=== PATIENT | male | born 1990 | race Caucasian/White ===

== ENCOUNTER 2017-09-10 08:32 | Emergency (ER) | payer OTHER ==
[~2017-09-10] VITALS: Ht 188 cm; Wt 142.9 kg
[~2017-09-10 08:32] MED LIST: ALPRAZOLAM2 MG PO; BENADRYL25 MG PO; CLONIDINE HCL0.1 MG PO; CLONIDINE HCL0.2 MG PO; GABAPENTIN600 MG PO; GEODON20 MG PO; HYDROXYZINE PAM50 MG PO; IBUPROFEN800 MG PO; PROTECT IRON T1 EACH PO; TRAZODONE HCL100 MG PO; TYLENOL EXTRA500 MG PO; VISTARIL50 MG PO; WELLBUTRIN SR150 MG PO; ZYPREXA ZYDIS15 MG PO; ZYPREXA15 MG PO
[2017-09-10] MEDS ORDERED: OLANZAPINE7.5 MG PO (08:41)
[2017-09-10] MEDS ORDERED: CLONAZEPAM0.5 MG PO (08:41)
[2017-09-10] MEDS ORDERED: METHYLPHENIDATE27 MG PO (08:42)
[2017-09-10] MEDS ORDERED: KETOROLAC TROME10 MG PO (09:00)
[2017-09-10] MEDS ORDERED: METHYLPREDNISOLO4 M1 PO (09:00)
[2017-09-10] MEDS ORDERED: BACLOFEN10 MG PO (09:00)
[2017-12-05] MEDS ORDERED: CONCERTA18 MG PO (13:05)
== END 2017-09-10 09:11 | disposition home or self-care (01) ==
LOC: ED 08:32
DX: M99.02 Segmental and somatic dysfunction of thoracic region (principal); M25.551 Pain in right hip; I10 Essential (primary) hypertension; F41.9 Anxiety disorder, unspecified; F32.9 Major depressive disorder, single episode, unspecified; G43.909 Migraine, unspecified, not intractable, without status migrainosus; Z87.891 Personal history of nicotine dependence; Z98.61 Coronary angioplasty status; Z88.8 Allergy status to other drugs, medicaments and biological substances; Z79.899 Other long term (current) drug therapy
CPT/HCPCS: 99283

== ENCOUNTER 2017-11-10 12:27 | Emergency (ER) | payer OTHER ==
[~2017-11-10] VITALS: Ht 188 cm; Wt 149.7 kg
[~2017-11-10 12:27] MED LIST changes: +BACLOFEN10 MG PO; +CLONAZEPAM0.5 MG PO; +KETOROLAC TROME10 MG PO; +METHYLPHENIDATE27 MG PO; +METHYLPREDNISOLO4 M1 PO; +OLANZAPINE7.5 MG PO
[2017-11-10] MEDS ORDERED: ALPRAZOLAM0.5 MG PO (12:47)
[2017-11-10] MEDS ORDERED: ANUSOL-HC25 MG PR (14:06)
[2017-12-05] MEDS ORDERED: CONCERTA18 MG PO (13:05)
== END 2017-11-10 14:28 | disposition home or self-care (01) ==
LOC: ED 12:27
DX: K64.8 Other hemorrhoids (principal); I10 Essential (primary) hypertension; F20.0 Paranoid schizophrenia; F41.9 Anxiety disorder, unspecified; F32.9 Major depressive disorder, single episode, unspecified; Z88.8 Allergy status to other drugs, medicaments and biological substances; Z79.899 Other long term (current) drug therapy
CPT/HCPCS: 80053; 85025; 99283

== ENCOUNTER 2017-11-25 12:47 | Emergency (ER) | payer OTHER ==
[~2017-11-25] VITALS: Ht 188 cm; Wt 149.7 kg
[~2017-11-25 12:47] MED LIST changes: +ALPRAZOLAM0.5 MG PO; +ANUSOL-HC25 MG PR
[2017-11-25] MEDS ORDERED: NAPROSYN500 MG PO (17:45)
[2017-11-25] MEDS ORDERED: AUGMENTIN 875-1 EACH PO (17:45)
--- NOTE | 2017-11-26 23:48 | EKG ---
[facility] [address] [place], [place] [address] Signed Normal sinus rhythm Normal ECG When compared with ECG of 25-NOV-2017 13:00, (Unconfirmed) No significant change was found Confirmed by JUNIOR MURPHY MD ([id number]) on 11/26/2017 11:48:08 PM Electronically Signed By: JUNIOR MURPHY MD 11/26/17 2348 PATIENT NAME: VITA GONZÁLES Electrocardiogram DATE OF : [birth year] PHYSICIAN: JUNIOR MURPHY MD REPORT #: [id number] REPORT IS CONFIDENTIAL AND NOT TO BE RELEASED WITHOUT AUTHORIZATION
--- NOTE | 2017-11-26 23:48 | EKG ---
[facility] [address] [facility] [place] [address] Signed Sinus tachycardia Nonspecific ST and T wave abnormality Abnormal ECG No previous ECGs available Confirmed by JUNIOR MURPHY MD ([id number]) on 11/26/2017 11:48:03 PM Electronically Signed By: JUNIOR MURPHY MD 11/26/17 2348 PATIENT NAME: VITA GONZÁLES Electrocardiogram DATE OF : [birth year] PHYSICIAN: JUNIOR MURPHY MD REPORT #: [id number] REPORT IS CONFIDENTIAL AND NOT TO BE RELEASED WITHOUT AUTHORIZATION
[2017-12-05] MEDS ORDERED: CONCERTA18 MG PO (13:05)
== END 2017-11-25 18:46 | disposition home or self-care (01) ==
LOC: ED 12:47
DX: J18.9 Pneumonia, unspecified organism (principal); J90 Pleural effusion, not elsewhere classified; J98.11 Atelectasis; R00.0 Tachycardia, unspecified; R94.31 Abnormal electrocardiogram [ECG] [EKG]; R79.89 Other specified abnormal findings of blood chemistry; F20.0 Paranoid schizophrenia; F32.9 Major depressive disorder, single episode, unspecified; Z79.899 Other long term (current) drug therapy; Z88.8 Allergy status to other drugs, medicaments and biological substances
CPT/HCPCS: 71046; 71260; 80053; 81001; 84443; 84484; 85025; 85379; 93005; 93010; 96361; 96374; 99284; J1885; J7120; Q9967

== ENCOUNTER 2017-12-11 08:40 | Day surgery (SDC) | payer OTHER ==
[~2017-12-11] VITALS: Ht 188 cm; Wt 149.7 kg
[~2017-12-11 08:40] MED LIST changes: +AUGMENTIN 875-1 EACH PO; +CONCERTA18 MG PO; +NAPROSYN500 MG PO
--- NOTE | 2017-12-11 11:34 | NUR ---
12/11/17 1134 Diana Ray 1126 PT ARRIVED IN PACU SLEEPY. ANESTHESIA AT BEDSIDE.
[2017-12-11] MEDS ORDERED: OXYCODON-ACETA1 EAC2 PO (11:39)
[2017-12-11] MEDS ORDERED: IBUPROFEN600 MG PO (11:39)
--- NOTE | 2017-12-11 12:34 | NUR ---
LE 1205: PT RETURNED FROM PACU VIA STRETCHER WITH RN. PT AWAKE AND TALKING. DENIES NAUSEA. RATES PAIN 5/10, IV AND PO MEDICATIONS GIVEN. PUDDING AND WATER GIVEN. LUNCH ORDERED PER PT REQUEST. GF IN ROOM. NO FURTHER NEEDS AT THIS TIME. CALL LIGHT IN REACH.
--- NOTE | 2017-12-11 14:35 | NUR ---
LE 1400: IN TO CHECK ON PT, PT AWAKE WATCHING TV. PT DOING WELL. RATE PAIN 4/10, IBU 600 MG GIVEN. PT STATES HE IS READY TO DISCHARGED. SL REMOVED. PT UP OUT OF BED, WALKING AT BEDSIDE. PT ABLE TO VOID IN URINAL. DRESSED WITH HELP WITH OF . PT TOLERATED WELL. D/C VIA WC.
--- NOTE | 2017-12-13 13:48 | OR ---
[facility] [address] [place], [place] [address] Signed DATE OF OPERATION: 12/11/2017 SURGEON: Marcus Vaughan MD PREOPERATIVE DIAGNOSES: 1. Obesity. 2. Right inguinal hernia (symptomatic). POSTOPERATIVE DIAGNOSIS: Right indirect and indirect inguinal hernia. PROCEDURE: Repair of right inguinal hernia with implantation of Prolene mesh (underlay technique). ANESTHESIA: General endotracheal, Cornelius Abarca CRNA and local 20 mL of 0.25% Marcaine without epinephrine. INDICATION: This 27-year-old white man is referred by Torres Davila with a worker's comp related right inguinal hernia. He has pain in the area and ultrasound has confirmed hernia. He is admitted to undergo repair. He understands the risks of bleeding, infection, recurrence, and so on. FINDINGS: There appeared to be a fat-containing indirect hernia adjacent to the cord. Initially, it was suggestive of a lipoma of the cord, but with full evaluation more likely an indirect-type hernia. The floor of the canal was intact distally, but laterally and more proximal to the cord was attenuated. Implantation of Prolene mesh in an underlay technique was used to secure reconstruction of the floor. An ilioinguinal and iliohypogastric nerve were identified and preserved during the course of dissection. Cord structures were normal otherwise. DESCRIPTION OF PROCEDURE: The patient was brought to the operating room and given a general endotracheal anesthetic. Preoperative antibiotic Ancef 3 g was given. Sequential compression device stockings used and heparin subcutaneously administered. The abdomen was clipped and prepared with a chlorhexidine solution and draped sterilely. The patient is very large. A transverse incision was made cephalad to the pubic tubercle on the right side. Dissection was carried through the subcutaneous tissue, ultimately identifying the Electronically Signed By: MARCUS VAUGHAN MD 12/13/17 1348 PATIENT NAME: VITA GONZÁLES OPERATIVE REPORT DATE OF : [birth year] PHYSICIAN: MARCUS VAUGHAN MD REPORT #: [id number] REPORT IS CONFIDENTIAL AND NOT TO BE RELEASED WITHOUT AUTHORIZATION [facility] [address] [place], [place] [address] Signed external oblique fascia. He had a very thick abdominal wall pannus. The external oblique was incised along its fibers revealing the underlying cord structures. An ilioinguinal and iliohypogastric nerve branch were dissected free from the cremasteric muscle fibers of the cord and reflected around the external oblique medially. The cord was mobilized from the floor and encircled with a [place] drain. Further dissection was undertaken showing the distal portion of the floor to be intact, but with attenuation of the internal ring as well as was what appeared to be a fatty indirect hernia. Cord structures were freed from the surrounding structures more fully. The fat-containing protrusion near the medial aspect of the cord and was found more likely to be a herniated properitoneal fat. There was certainly no hollow viscus within the area. This was invaginated into the properitoneal space and secured with a moist laparotomy pack. The attenuated fibers of the fascia transversalis in the region of the spermatic cord were incised revealing the inferior epigastric vessels, which were left in situ. Further division of the fascia transversalis was undertaken towards the pubic tubercle. The properitoneal fat was bluntly . There was no sign of femoral hernia or defect. A segment of Prolene mesh was cut to the appropriate configuration and secured in an underlay technique with interrupted 2-0 Prolene suture. A defect was cut in the graft to accommodate the cord and the tails of the graft were secured laterally with 2-0 Prolene as well. Special care was taken to avoid encumbering the ilioinguinal and iliohypogastric nerve branches. The cord was replaced into the canal as were the inguinal nerves and 20 mL of 0.25% Marcaine without epinephrine was injected locally. The external oblique was reapproximated with running 2-0 Vicryl sutures. Dayna's layer was reapproximated with interrupted 2-0 Vicryl and skin closed with running subcuticular 3-0 Vicryl. Steri-Strips were applied as was a Mepilex silver sponge dressing and an OpSite. The patient tolerated the procedure well. BLOOD LOSS: Minimal. COMPLICATIONS: None. Marcus Vaughan MD Electronically Signed By: MARCUS VAUGHAN MD 12/13/17 1348 PATIENT NAME: VITA GONZÁLES OPERATIVE REPORT DATE OF : [birth year] PHYSICIAN: MARCUS VAUGHAN MD REPORT #: [id number] REPORT IS CONFIDENTIAL AND NOT TO BE RELEASED WITHOUT AUTHORIZATION [address] [place], [place] [address] Signed VASYL/LUCINDA /[id number] cc: YASMANY Peoples Electronically Signed By: MARCUS VAUGHAN MD 12/13/17 1348 PATIENT NAME: ELIECERVITA GARCIA OPERATIVE REPORT DATE OF : [birth year] PHYSICIAN: AMRCUS VAUGHAN MD REPORT #: [id number] REPORT IS CONFIDENTIAL AND NOT TO BE RELEASED WITHOUT AUTHORIZATION
== END 2017-12-11 14:28 | disposition home or self-care (01) ==
LOC: DS 08:40
PROVIDERS: Surgery
PROC: 0YU50JZ Supplement Right Inguinal Region with Synthetic Substitute, Open Approach (ICD-10-PCS; principal; 2017-12-11 10:00)
DX: K40.90 Unilateral inguinal hernia, without obstruction or gangrene, not specified as recurrent (principal); E66.9 Obesity, unspecified; Z88.8 Allergy status to other drugs, medicaments and biological substances; Z98.890 Other specified postprocedural states; Z68.41 Body mass index [BMI] 40.0-44.9, adult
CPT/HCPCS: 00830; C1781; J0690; J1170; J1644; J1885; J2405; J2704; J2710; J3010; J7120

== ENCOUNTER 2021-05-14 11:16 | Emergency (ER) | payer OTHER ==
[~2021-05-14] VITALS: Ht 188 cm; Wt 154.2 kg
[~2021-05-14 11:16] MED LIST changes: +IBUPROFEN600 MG PO; +OXYCODON-ACETA1 EAC2 PO; +VITAMIN B-121000 MC3 PO
--- OUTSIDE RECORDS SUMMARY | 2021-05-14 11:22 | XMS ---
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 ( 01/03/2021 ) Care History Medical/Surgical 10/08/2018 [facility] - Patient is currently established with [facility]. If patient is seen in the ED during business hours. Please contact CHWs at [facility]. Care Recommendation: This patient has had 5 or more Emergency Department visits in the last 12 months.\T\nbsp; Patient requires education on the scope and purpose of the ED as an acute care provider not a Primary Care Provider and should not be utilized for chronic conditions.\T\nbsp; These are guidelines and the provider should exercise clinical judgment when providing care. E.D. VISIT COUNT (12 MO.) 1 [facility] TOTAL 1 NOTE: Visits indicate total known visits. ED/UCC VISIT TRACKING (12 MO.) 05/14/2021 11:17 [facility] [place] TYPE: Emergency COMPLAINT: - LEFT KNEE PAIN INPATIENT VISIT TRACKING (12 MO.) No inpatient visits to display in this time frame [email or web address]
[2021-05-14] MEDS ORDERED: DEXTROAMP-AMPHE30 MG PO (11:35)
== END 2021-05-14 12:40 | disposition home or self-care (01) ==
LOC: ED 11:16
DX: S83.92XA Sprain of unspecified site of left knee, initial encounter (principal); W22.8XXA Striking against or struck by other objects, initial encounter; I10 Essential (primary) hypertension; Z87.891 Personal history of nicotine dependence; Z88.8 Allergy status to other drugs, medicaments and biological substances; Z79.899 Other long term (current) drug therapy
CPT/HCPCS: 73560; 99283-25

== ENCOUNTER 2021-06-05 12:33 | Emergency (ER) | payer OTHER ==
[~2021-06-05] VITALS: Ht 188 cm; Wt 154.2 kg
[~2021-06-05 12:33] MED LIST changes: +DEXTROAMP-AMPHE30 MG PO
--- OUTSIDE RECORDS SUMMARY | 2021-06-05 12:36 | XMS ---
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 If patient is seen in the ED during business hours. Please contact CHWs at [facility]. Care Recommendation: This patient has had 5 [...] providing care. E.D. VISIT COUNT (12 MO.) 2 [facility] TOTAL 2 NOTE: Visits indicate total known visits. 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
[2021-06-05] MEDS ORDERED: AMPHETAMINE SAL20 MG PO (12:55)
== END 2021-06-05 17:31 | disposition home or self-care (01) ==
LOC: ED 12:33
DX: U07.1 COVID-19 (principal); I10 Essential (primary) hypertension; G43.909 Migraine, unspecified, not intractable, without status migrainosus; Z87.891 Personal history of nicotine dependence; Z88.8 Allergy status to other drugs, medicaments and biological substances; Z79.899 Other long term (current) drug therapy
CPT/HCPCS: 71045; 96374; 99283-25; C9803; J1885; M0245; U0003

== ENCOUNTER 2021-12-12 20:40 | Emergency (ER) | payer OTHER ==
[~2021-12-12] VITALS: Ht 188 cm; Wt 146.0 kg
[~2021-12-12 20:40] MED LIST changes: +AMPHETAMINE SAL20 MG PO
--- OUTSIDE RECORDS SUMMARY | 2021-12-12 20:44 | XMS ---
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 If patient is seen in the ED during business hours. Please contact CHWs at [facility]. Care Recommendation: This patient has had [...] providing care. E.D. VISIT COUNT (12 MO.) [address] [facility] TOTAL 3 NOTE: Visits indicate total known visits. ED/UCC VISIT TRACKING (12 MO.) 12/12/2021 20:42 [facility] [place] TYPE: Emergency COMPLAINT: - COVID +, COLD SYMPTOMS 06/05/2021 12:34 [facility] [place] TYPE: Emergency COMPLAINT: - SHORTNESS OF BREATH, BACK PAIN DIAGNOSES: - Other residential (current) drug therapy - Personal history of nicotine dependence - Essential (primary) hypertension - Migraine, unspecified, not intractable, without status migrainosus - COVID-19 - Allergy status to other drugs, medicaments and biological substances - Cough 05/14/2021 11:[address] 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
[2021-12-12] MEDS ORDERED: AMPHETAMINE SAL15 MG PO (21:05)
[2021-12-12] MEDS ORDERED: OLANZAPINE5 MG PO (21:05)
--- NOTE | 2021-12-13 20:23 | PATH ---
[facility] [address] [facility] [facility] [place], [place] [address] Signed ORDERING PHYSICIAN: Chasity Rolle MD PATIENT NAME: VITA GONZÁLES GENDER: Luli : 1990 SPECIMEN(S): No Source Given MOLECULAR PATHOLOGY RESULTS: SARS-CoV-2 DETECTED ADDITIONAL NOTES.: The Tom Bean Fusion SARS-CoV-2 Assay is a multiplex real-time PCR (RT-PCR) in vitro diagnostic test intended for the qualitative detection of RNA from SARS-CoV-2 from individuals who meet COVID-19 clinical and/or epidemiological criteria. In general, SARS-CoV-2 RNA can be detected during the acute phase of infection. Positive results indicate the presence of SARS-CoV-2 RNA. Clinical correlation with patient history and other diagnostic information is necessary to determine patient infection status. Positive results do not rule out bacterial infection or co-infection with other viruses. Negative results do not preclude SARS-CoV-2 infection and should not be used as the sole basis for patient management decisions. Negative results must be combined with other clinical observations, patient history, and epidemiological information. The Tom Bean Fusion SARS-CoV-2 Assay is not yet approved or cleared by the [place] FDA. When there are no FDA-approved or cleared tests available, and other criteria are met, FDA can make tests available under an emergency access mechanism called an Emergency Use Authorization (EUA). The EUA for this test is supported by the Meta of Health and Human Service's (HHS's) declaration that circumstances exist to justify the emergency use of in vitro diagnostics for the detection and/or diagnosis of the virus that causes COVID-19. This EUA will remain in effect for the duration of the COVID-19 declaration justifying emergency use of IVDs, unless it is terminated or revoked by FDA, after which the test may no longer be used. The Tom Bean Fusion SARS-CoV-2 Assay is for use only under EUA in US laboratories certified under the Clinical Laboratory Improvement Amendments of 1988 (CLIA) to perform high complexity tests. [facility] is certified under CLIA to perform high PATIENT NAME: VITA GONZÁLES PATHOLOGY DATE OF : [birth year] REPORT #: [id number] PHYSICIAN: NATALIA PATHOLOGY PCP: VICKIE TEJEDA MD REPORT IS CONFIDENTIAL AND NOT TO BE RELEASED WITHOUT AUTHORIZATION [facility] [address] [place] [id number] Signed complexity clinical laboratory testing. Daly Burris PERFORMING LABORATORY.: Molecular testing was performed by [facility], [address], [place] [address], , CLIA #: [id number]. Diagnostician: System Interface Pathologist Electronically Signed 12/13/2021 Copies: ~ PATIENT NAME: VITA GONZÁLES PATHOLOGY DATE OF : [birth year] REPORT #: [id number] PHYSICIAN: NATALIA MILTON PCP: VICKIE TEJEDA MD REPORT IS CONFIDENTIAL AND NOT TO BE RELEASED WITHOUT AUTHORIZATION
== END 2021-12-12 22:11 | disposition home or self-care (01) ==
LOC: ED 20:40
DX: U07.1 COVID-19 (principal); G43.909 Migraine, unspecified, not intractable, without status migrainosus; I10 Essential (primary) hypertension; Z87.891 Personal history of nicotine dependence; Z88.8 Allergy status to other drugs, medicaments and biological substances; Z79.899 Other long term (current) drug therapy
CPT/HCPCS: 99283; C9803

== ENCOUNTER 2021-12-31 08:46 | Emergency (ER) | payer OTHER ==
[~2021-12-31] VITALS: Ht 188 cm; Wt 138.3 kg
[~2021-12-31 08:46] MED LIST changes: +AMPHETAMINE SAL15 MG PO; +OLANZAPINE5 MG PO
--- OUTSIDE RECORDS SUMMARY | 2021-12-31 08:50 | XMS ---
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 Events No recent Security Events currently on file CRITERIA MET - ED - Positive COVID-19 Lab Result - [facility] - PDMP - Group Notification - [facility] - 2 Visits in 30 Days CARE PROVIDERS RAJ MACDONALD Nurse Practitioner: 10/08/2018-Current PHONE: Unknown VICKIE TEJEDA [facility] 12/13/2021-Current PHONE: Unknown Care Guidelines exist for the following facilities: [facility] ( 01/03/2021 ) Care History Medical/Surgical 10/08/2018 [facility] - Patient is currently established with [facility]. If patient is seen in the ED during business hours. Please contact CHWs at [facility]. Care Recommendation: This patient has had 5 [...] providing care. E.D. VISIT COUNT (12 MO.) 4 [facility] TOTAL 4 NOTE: Visits indicate total known visits. ED/UCC VISIT TRACKING (12 MO.) 12/31/2021 08:47 [facility] [place] TYPE: Emergency COMPLAINT: - CHEST PAIN/MULTIPLE COMPLAINTS 12/12/2021 20:42 [facility] [place] TYPE: Emergency COMPLAINT: - COVID +, COLD SYMPTOMS DIAGNOSES: - Other intermission coordinator (current) drug therapy - Essential (primary) hypertension - Migraine, unspecified, not intractable, without status migrainosus - COUGH, UNSPECIFIED - COVID-19 - Personal history of nicotine dependence - Allergy status to other drugs, medicaments and biological substances 06/05/2021 12:34 [facility] [place] TYPE: Emergency COMPLAINT: - SHORTNESS OF BREATH, BACK PAIN DIAGNOSES: - Other detention (current) drug therapy - Personal history of nicotine dependence - Essential (primary) hypertension - Migraine, unspecified, not intractable, without status migrainosus - COVID-19 - Allergy status to other drugs, medicaments and biological substances - Cough 05/14/2021 11:17 [facility] [place] [place] TYPE: Emergency COMPLAINT: - LEFT KNEE PAIN DIAGNOSES: - Allergy status to other drugs, medicaments and biological substances - Other detention (current) drug therapy - Sprain of unspecified site of left knee, initial encounter - Essential (primary) hypertension - Pain in left knee - Personal history of nicotine dependence - Striking against or struck by other objects, initial encounter INPATIENT VISIT TRACKING (12 MO.) No inpatient visits to display in this time frame [email or web address]
--- NOTE | 2021-12-31 14:01 | EKG ---
[facility] [address] [facility] [place], [place] [address] Signed Sinus rhythm with marked sinus arrhythmia Nonspecific ST abnormality Abnormal ECG When compared with ECG of 01-JUN-2019 14:56, Nonspecific T wave abnormality has replaced inverted T waves in Anterior leads Confirmed by WILMER TRENT DO ([id number]) on 12/31/2021 2:01:17 PM Electronically Signed By: WILMER TRENT DO 12/31/21 1401 PATIENT NAME: VITA GONZÁLES Electrocardiogram DATE OF : [birth year] PHYSICIAN: WILMER TRENT DO REPORT #: [id number] REPORT IS CONFIDENTIAL AND NOT TO BE RELEASED WITHOUT AUTHORIZATION
== END 2021-12-31 10:20 | disposition home or self-care (01) ==
LOC: ED 08:46
DX: R00.2 Palpitations (principal); F45.8 Other somatoform disorders; G43.909 Migraine, unspecified, not intractable, without status migrainosus; I10 Essential (primary) hypertension; Z87.891 Personal history of nicotine dependence; Z79.899 Other long term (current) drug therapy; Z88.8 Allergy status to other drugs, medicaments and biological substances
CPT/HCPCS: 36415; 71045; 80053; 83690; 84484; 85025; 93005; 93010; 99285-25

== ENCOUNTER 2022-04-09 18:00 | Emergency (ER) | payer OTHER ==
[~2022-04-09] VITALS: Ht 188 cm; Wt 129.3 kg
--- OUTSIDE RECORDS SUMMARY | 2022-04-09 18:02 | XMS ---
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 Security Guide Changer Events No recent Security Events currently on file CRITERIA MET - [facility] - 2 Visits in 30 Days - PDMP - Group Notification - [facility] - Has Care Guidelines CARE PROVIDERS RAJ MACDONALD Nurse Practitioner: Family 10/08/2018-Current PHONE: Unknown VICKIE VILLAVICENCIO Family [facility] 12/13/2021-Current PHONE: Unknown Care Guidelines exist for the following facilities: [facility] ( 01/03/2021 ) Care History Medical/Surgical 01/05/2022 [facility] Phone number on file is non working number. Letter sent advising follow up with PCP Dr. Villavicencio. 01/04/2022 [facility] - Patient is currently established with [facility]. If patient is seen in the ED during business hours. Please contact CHWs at [facility]. Care Recommendation: This patient has had 5 or more Emergency Department visits in the last 12 months. Patient requires education on the scope and purpose of the ED as an acute care provider not a Primary Care Provider and should not be utilized for chronic conditions. These are guidelines and the provider should exercise clinical judgment when providing care. E.D. VISIT COUNT (12 MO.) [address] [facility] [place] TOTAL 7 NOTE: Visits indicate total known visits. ED/UCC VISIT TRACKING (12 MO.) 04/09/2022 18:01 [facility] [place] TYPE: Emergency COMPLAINT: - MEDICAL CLEARANCE 04/02/2022 02:38 [facility] TYPE: Emergency COMPLAINT: - Other chest pain - Dizziness and giddiness - Palpitations DIAGNOSES: 1. Chest pain, unspecified 2. Generalized anxiety disorder 03/28/2022 08:02 [facility] TYPE: Emergency COMPLAINT: - Other general symptoms and signs DIAGNOSES: 1. Other general symptoms and signs 12/31/2021 08:[address] 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 - Palpitations - Essential (primary) hypertension - Migraine, unspecified, not intractable, without status migrainosus - Paresthesia of skin - Other somatoform disorders 12/12/2021 20:42 [facility] [place] TYPE: Emergency COMPLAINT: - COVID +, COLD SYMPTOMS DIAGNOSES: - Other fci (current) drug therapy - Essential (primary) hypertension - Cough, unspecified - Migraine, unspecified, not intractable, without status migrainosus - COUGH, UNSPECIFIED - COVID-19 - Personal history of nicotine dependence - Allergy status to other drugs, medicaments and biological substances 06/05/2021 12:34 [facility] [place] TYPE: Emergency COMPLAINT: - SHORTNESS OF BREATH, BACK PAIN DIAGNOSES: - Other computer terminal operator (current) drug therapy - Personal history of nicotine dependence - Essential (primary) hypertension - Migraine, unspecified, not intractable, without status migrainosus - COVID-19 - Allergy status to other drugs, medicaments and biological substances - Cough 05/14/2021 11:17 [facility] [place] TYPE: Emergency COMPLAINT: - LEFT KNEE PAIN DIAGNOSES: - Allergy status to other drugs, medicaments and biological substances - Other fci (current) drug therapy - Sprain of unspecified site of left knee, initial encounter - Essential (primary) hypertension - Pain in left knee - Personal history of nicotine dependence - Striking against or struck by other objects, initial encounter INPATIENT VISIT TRACKING (12 MO.) No inpatient visits to display in this time frame [email or web address]
[2022-04-09] MEDS ORDERED: OLANZAPINE5 MG PO (18:21)
[2022-04-09] MEDS ORDERED: CLONAZEPAM2 MG PO (19:20)
[2022-04-09] MEDS ORDERED: MELATONIN10 M2 PO (19:21)
== END 2022-04-09 20:56 | disposition home or self-care (01) ==
LOC: ED 18:00
DX: F41.8 Other specified anxiety disorders (principal); I10 Essential (primary) hypertension; Z87.891 Personal history of nicotine dependence; Z88.8 Allergy status to other drugs, medicaments and biological substances; Z79.899 Other long term (current) drug therapy
CPT/HCPCS: 99283

== ENCOUNTER 2022-12-24 06:28 | Emergency (ER) | payer OTHER ==
[~2022-12-24] VITALS: Ht 188 cm; Wt 129.3 kg
[~2022-12-24 06:28] MED LIST changes: +CLONAZEPAM2 MG PO; +MELATONIN10 M2 PO
--- OUTSIDE RECORDS SUMMARY | 2022-12-24 06:30 | XMS ---
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 No recent Security Events currently on file CRITERIA MET - [facility] - 2 Visits in 30 Days - [facility] - Has Care Guidelines - PDMP - Group Notification CARE PROVIDERS BEBA ALANIZ Family Medicine Current PHONE: Unknown RAJ MACDONALD Nurse Practitioner: Family 10/08/2018-Current PHONE: Unknown VICKIE VILLAVICENCIO Family Medicine 12/13/2021-Current PHONE: Unknown Care Guidelines exist for the following facilities: [facility] ( 01/03/2021 ) Care History Medical/Surgical 01/05/2022 [facility] Phone number on file is non working number. Letter sent advising follow up with PCP Dr. Villavicencio. 01/04/2022 [facility] - Patient is currently established with [...] care. E.D. VISIT COUNT (12 MO.) 3 [facility] 2 [facility]. - [place] 3 [facility]. TOTAL 8 NOTE: Visits indicate total known visits. ED/UCC VISIT TRACKING (12 MO.) 12/24/2022 06:29 [facility] [place] TYPE: Emergency COMPLAINT: - INSOMNIA, ANXIETY, HALLUCINATION 12/03/2022 15:10 [facility] [place] TYPE: Emergency DIAGNOSES: - Schizoaffective disorder, unspecified - Other skilled nursing (current) drug therapy - Paresthesia of skin - Patient's other noncompliance with medication regimen - Attention-deficit hyperactivity disorder, unspecified type - Essential (primary) hypertension - Nicotine dependence, cigarettes, uncomplicated 10/08/2022 13:01 [facility] [place] TYPE: Emergency COMPLAINT: - lump upper back DIAGNOSES: - Carpal tunnel syndrome, right upper limb - Anxiety disorder, unspecified - Chest pain, unspecified - Benign lipomatous neoplasm of skin and subcutaneous tissue of trunk 04/29/2022 20:50 [facility] TYPE: Emergency COMPLAINT: - Depression, unspecified - Auditory hallucinations DIAGNOSES: 1. Auditory hallucinations 2. Alcohol use, unspecified with intoxication, unspecified 3. Other stimulant use, unspecified, uncomplicated 4. Depression, unspecified 04/09/2022 18:01 [facility] TYPE: Emergency COMPLAINT: - MEDICAL CLEARANCE DIAGNOSES: - Allergy status to other drugs, medicaments and biological substances - Other specified anxiety disorders - Other skilled nursing (current) drug therapy - Personal history of nicotine dependence - Essential (primary) hypertension 04/02/2022 02:38 [facility] TYPE: Emergency COMPLAINT: - Other chest pain - Dizziness and giddiness - Palpitations DIAGNOSES: 1. Chest pain, unspecified 2. Generalized anxiety disorder 03/28/2022 08:02 [facility] TYPE: Emergency COMPLAINT: - Other general symptoms and signs DIAGNOSES: 1. Other general symptoms and signs 12/31/2021 08:[address] [facility] [place] TYPE: Emergency COMPLAINT: - CHEST PAIN/MULTIPLE COMPLAINTS DIAGNOSES: - Allergy status to other drugs, medicaments and biological substances - Other somatoform disorders - Migraine, unspecified, not intractable, without status migrainosus - Palpitations - Personal history of nicotine dependence - Paresthesia of skin - Essential (primary) hypertension - Other moth exterminator (current) drug therapy INPATIENT VISIT TRACKING (12 MO.) No inpatient visits to display in this time frame [email or web address]
[2022-12-24] MEDS ORDERED: ZYPREXA5 MG PO ×2 (06:55→10:53)
== END 2022-12-24 11:04 | disposition home or self-care (01) ==
LOC: ED 06:28
DX: F41.9 Anxiety disorder, unspecified (principal); G47.00 Insomnia, unspecified; R44.3 Hallucinations, unspecified; I10 Essential (primary) hypertension; Z87.891 Personal history of nicotine dependence; Z88.8 Allergy status to other drugs, medicaments and biological substances; Z79.899 Other long term (current) drug therapy
CPT/HCPCS: 36415; 80053; 81003; 84443; 85025; 96374; 99284-25; G0480; J2060

== ENCOUNTER 2023-08-29 14:50 | Emergency (ER) | payer OTHER ==
[~2023-08-29] VITALS: Ht 188 cm; Wt 108.9 kg
[~2023-08-29 14:50] MED LIST changes: +CYCLOBENZAPRINE10 MG PO; +RIZATRIPTAN10 MG PO; +ZYPREXA5 MG PO
--- OUTSIDE RECORDS SUMMARY | 2023-08-29 14:52 | XMS ---
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 No recent Security Events currently on file CRITERIA MET - Group Notification - PDMP - [facility] - 2 Visits in 30 Days CARE PROVIDERS VICKIE VILLAVICENCIO Family Medicine 12/13/2021-Current PHONE: [phone] RAJ MACDONALD Nurse Practitioner: Family 10/08/2018-Current PHONE: Unknown -Caesar- Dentist: [employer] [facility] PHONE: [phone] Care Guidelines exist for the following facilities: [facility] ( 01/03/2021 ) Care History Medical/Surgical 01/05/2022 [facility] Phone number on file is non working number. Letter sent advising follow up with PCP Dr. Villavicencio. 01/04/2022 [facility] - Patient is currently established with [facility]. If patient is seen in the ED during business hours. Please contact CHWs at [facility]. Care Recommendation: This patient has had [...] providing care. E.D. VISIT COUNT (12 MO.) 5 [facility]. - [place] 3 [facility]. TOTAL 8 NOTE: Visits indicate total known visits. ED/UCC VISIT TRACKING (12 MO.) 08/29/2023 14:50 [facility] [place] TYPE: Emergency COMPLAINT: - "NOT THINKING WELL" 08/27/2023 18:23 [facility] [place] TYPE: Emergency COMPLAINT: - HEADACHE DIAGNOSES: - Acute maxillary sinusitis, unspecified - Adjustment disorder, unspecified - Allergy status to other drugs, medicaments and biological substances - Anxiety disorder, unspecified - Chronic maxillary sinusitis - COVID-19 - Depression, unspecified - Essential (primary) hypertension - Headache, unspecified - Other half-way (current) drug therapy - Paranoid schizophrenia - Personal history of nicotine dependence - Post-traumatic stress disorder, unspecified 07/04/2023 06:58 [facility]. [place] TYPE: Emergency COMPLAINT: - NUMBNESS AND TINGLING IN FINGERS /CHRONI DIAGNOSES: 1. Paresthesia of skin 2. Allergy status to other drugs, medicaments and biological substances 2. Cramp and spasm 2. Essential (primary) hypertension 2. Other chest pain 2. Other terminal press operator (current) drug therapy 03/20/2023 07:01 [facility] [place] TYPE: Emergency COMPLAINT: - General DIAGNOSES: - Allergy status to other drugs, medicaments and biological substances - Essential (primary) hypertension - Nicotine dependence, cigarettes, uncomplicated - Ophthalmoplegic migraine, not intractable - Other terminal press operator (current) drug therapy 02/28/2023 15:33 [facility] [place] TYPE: Emergency DIAGNOSES: - Anxiety disorder, unspecified - Depression, unspecified - Essential (primary) hypertension - Other half-way (current) drug therapy 12/24/2022 06:29 [facility] [place] TYPE: Emergency COMPLAINT: - INSOMNIA, ANXIETY, HALLUCINATION DIAGNOSES: - Allergy status to other drugs, medicaments and biological substances - Anxiety disorder, unspecified - Essential (primary) hypertension - Hallucinations, unspecified - Insomnia, unspecified - Other terminal press operator (current) drug therapy - Personal history of nicotine dependence 12/03/2022 15:10 [facility] [place] TYPE: Emergency DIAGNOSES: - Attention-deficit hyperactivity disorder, unspecified type - Essential (primary) hypertension - Nicotine dependence, cigarettes, uncomplicated - Other terminal press operator (current) drug therapy - Paresthesia of skin - Patient's other noncompliance with medication regimen - Schizoaffective disorder, unspecified 10/08/2022 13:01 [facility] [place] TYPE: Emergency COMPLAINT: - lump upper back DIAGNOSES: - Anxiety disorder, unspecified - Benign lipomatous neoplasm of skin and subcutaneous tissue of trunk - Carpal tunnel syndrome, right upper limb - Chest pain, unspecified INPATIENT VISIT TRACKING (12 MO.) No inpatient visits to display in this time frame [email or web address]
[2023-08-30] MEDS ORDERED: ZYPREXA5 MG PO (11:54)
[2023-08-30 12:03] VITALS: BP 119/80
== END 2023-08-30 12:05 | disposition home or self-care (01) ==
LOC: ED 14:50
DX: U07.1 COVID-19 (principal); F20.9 Schizophrenia, unspecified; F41.9 Anxiety disorder, unspecified; F32.A Depression, unspecified; F43.10 Post-traumatic stress disorder, unspecified; I10 Essential (primary) hypertension; Z79.899 Other long term (current) drug therapy; Z87.891 Personal history of nicotine dependence; Z88.8 Allergy status to other drugs, medicaments and biological substances

== ENCOUNTER 2023-09-06 21:25 | Emergency (ER) | payer OTHER ==
[~2023-09-06] VITALS: Ht 188 cm; Wt 105.1 kg
--- OUTSIDE RECORDS SUMMARY | 2023-09-06 21:28 | XMS ---
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 No recent Security Events currently on file CRITERIA MET - 6 ED Visits in 6 Months - Group Notification - PDMP - [facility] - 2 Visits in 30 Days - [facility] - 3 Facilities in 90 Days CARE PROVIDERS VICKIE VILLAVICENCIO Family Medicine 12/13/2021-Current PHONE: [phone] RAJ MACDONALD Nurse Practitioner: 10/08/2018-Current PHONE: Unknown -Caesar- Dentist: [facility] PHONE: [phone] Care Guidelines exist for the following facilities: [facility] ( 01/03/2021 ) Care History Medical/Surgical 01/05/2022 [facility] Phone number on file is non working number. Letter sent advising follow up with PCP Dr. Villavicencio. 01/04/2022 [facility] - Patient is currently established with [facility]. If patient is seen in the ED during business hours. Please contact CHWs at [facility]. Care Recommendation: This patient has had [...] care. E.D. VIS[facility] ([address] [facility] NOTE: Visits indicate total known visits. ED/C VISIT TRACKING (12 MO.) 09/06/2023 21:25 [facility] [place] TYPE: Emergency COMPLAINT: - MEDICAL CLEARENCE 09/06/2023 11:16 [facility] [place] ([place] TYPE: Emergency DIAGNOSES: - Depression, unspecified - anxiety - Suicidal 09/04/2023 15:52 [facility] [place] [facility] ([place] TYPE: Emergency DIAGNOSES: - Depression, unspecified - Homelessness unspecified - Schizoaffective disorder, unspecified - Mental Health Problem - suicidal 08/31/2023 16:27 [facility] [place] ([place]) TYPE: Emergency DIAGNOSES: - Anxiety disorder, unspecified - Attention-deficit hyperactivity disorder, predominantly inattentive type - Homelessness unspecified - Migraine with aura, not intractable, without status migrainosus - Other specified behavioral and emotional disorders with onset usually occurring in childhood and adolescence - Schizoaffective disorder, depressive type - Suicidal ideations - needs some where safe - Suicidal 08/30/2023 18:26 [facility] ([place] TYPE: Emergency DIAGNOSES: - Suicidal ideations - mental health - Suicidal 08/30/2023 15:29 [facility] [place] ([place]) TYPE: Emergency DIAGNOSES: - Anxiety disorder, unspecified - Attention-deficit hyperactivity disorder, predominantly inattentive type - Migraine with aura, not intractable, without status migrainosus - Other specified behavioral and emotional disorders with onset usually occurring in childhood and adolescence - Schizoaffective disorder, depressive type - head injury - Headache (Adult - Recurrent Or Known Dx Migraines) - Medical Problem (Minor) 08/29/2023 14:50 [facility] [place] TYPE: Emergency COMPLAINT: - "NOT THINKING WELL" DIAGNOSES: - Allergy status to other drugs, medicaments and biological substances - Anxiety disorder, unspecified - COVID-19 - Depression, unspecified - Essential (primary) hypertension - Other fdc (current) drug therapy - Personal history of nicotine dependence - Post-traumatic stress disorder, unspecified - Schizophrenia, unspecified 08/27/2023 18:23 [facility] [place] TYPE: Emergency COMPLAINT: - HEADACHE DIAGNOSES: - Acute maxillary sinusitis, unspecified - Adjustment disorder, unspecified - Allergy status to other drugs, medicaments and biological substances - Anxiety disorder, unspecified - Chronic maxillary sinusitis - COVID-19 - Depression, unspecified - Essential (primary) hypertension - Headache, unspecified - Other ocean transportation intermediary (current) drug therapy - Paranoid schizophrenia - Personal history of nicotine dependence - Post-traumatic stress disorder, unspecified 07/04/2023 06:[address] [facility] [place] TYPE: Emergency COMPLAINT: - NUMBNESS AND TINGLING IN FINGERS /CHRONI DIAGNOSES: 1. Paresthesia of skin 2. Allergy status to other drugs, medicaments and biological substances 2. Cramp and spasm 2. Essential (primary) hypertension 2. Other chest pain 2. Other fdc (current) drug therapy 03/20/2023 07:[address] [facility] [place] TYPE: Emergency COMPLAINT: - General DIAGNOSES: - Allergy status to other drugs, medicaments and biological substances - Essential (primary) hypertension - Nicotine dependence, cigarettes, uncomplicated - Ophthalmoplegic migraine, not intractable - Other fdc (current) drug therapy 02/28/2023 15:[address] [facility] [place] TYPE: Emergency DIAGNOSES: - Anxiety disorder, unspecified - Depression, unspecified - Essential (primary) hypertension - Other ocean transportation intermediary (current) drug therapy 12/24/2022 06:29 [facility] [place] TYPE: Emergency COMPLAINT: - INSOMNIA, ANXIETY, HALLUCINATION DIAGNOSES: - Allergy status to other drugs, medicaments and biological substances - Anxiety disorder, unspecified - Essential (primary) hypertension - Hallucinations, unspecified - Insomnia, unspecified - Other ocean transportation intermediary (current) drug therapy - Personal history of nicotine dependence 12/03/2022 15:[address] [facility] [place] TYPE: Emergency DIAGNOSES: - Attention-deficit hyperactivity disorder, unspecified type - Essential (primary) hypertension - Nicotine dependence, cigarettes, uncomplicated - Other fdc (current) drug therapy - Paresthesia of skin - Patient's other noncompliance with medication regimen - Schizoaffective disorder, unspecified 10/08/2022 13:[address] [facility] [place] TYPE: Emergency COMPLAINT: - lump upper back DIAGNOSES: - Anxiety disorder, unspecified - Benign lipomatous neoplasm of skin and subcutaneous tissue of trunk - Carpal tunnel syndrome, right upper limb - Chest pain, unspecified INPATIENT VISIT TRACKING (12 MO.) No inpatient visits to display in this time frame [id number]
[2023-09-06 23:26] LABS: BASOPHILS 0.7 % (0-2); EOSINOPHILS 0.7 % (0-6); HEMATOCRIT 39.2 % (35.0-50.0); LYMPHOCYTES 30.8 % (24-44); MCH 29.1 (27-36); MCV 88.1 fl (81-99); MONOCYTES 9.8 % (0-12); PLATELET COUNT 373 K/uL (140-440); RBC 4.45 M/ul (4.3-5.7)
[2023-09-06 23:50] LABS: ACETAMINOPHEN 0 ug/mL (10-30); ALBUMIN 3.4 g/dL (3.4-5.0); ALBUMIN/GLOBULIN RATIO 0.97 (1.1-2.4); ALCOHOL, MEDICAL <3 ng/dL (<3); ALKALINE PHOSPHATASE 68 U/L (46-116); ALT (SGPT) 30 U/L (14-59); ANION GAP 10.3 (7-21); AST (SGOT) 21 U/L (15-37); BILIRUBIN, TOTAL 0.3 ng/dL (0.2-1.0); CALCIUM 8.7 mg/dL (8.5-10.1); CARBON DIOXIDE 31 mmol/L (21-32); CHLORIDE 101 mmol/L (98-107); CREATININE, SERUM 0.75 mg/dL (0.70-1.30); GLOMERULAR FILTRATION RATE,EST 121 mL/min (>60); POTASSIUM 3.3 mmol/L (3.5-5.1); PROTEIN, TOTAL 6.9 g/dL (6.4-8.2); SALICYLATE 2.3 mg/dL (2.8-20.0); TSH, 3RD GENERATION 1.997 uIU/mL (0.358-3.740); UREA NITROGEN 9 mg/dL (7-18)
[2023-09-07] MEDS ORDERED: CYCLOBENZAPRINE10 MG PO (00:37)
[2023-09-07 00:58] VITALS: BP 135/94
== END 2023-09-07 00:58 | disposition home or self-care (01) ==
LOC: ED 21:25
PROVIDERS: Family Medicine
DX: F90.9 Attention-deficit hyperactivity disorder, unspecified type (principal); F20.9 Schizophrenia, unspecified; I10 Essential (primary) hypertension; Z59.00 Homelessness unspecified; Z87.891 Personal history of nicotine dependence; Z88.8 Allergy status to other drugs, medicaments and biological substances; Z79.899 Other long term (current) drug therapy
CPT/HCPCS: 36415; 80053; 80307; 84443; 85025; 99284; A9270; G0480

== ENCOUNTER 2023-12-08 23:50 | Emergency (ER) | payer OTHER ==
[~2023-12-08] VITALS: Ht 188 cm; Wt 108.0 kg
[2023-12-09 00:14] LABS: BASOPHILS 0.7 % (0-2); EOSINOPHILS 1.2 % (0-6); HEMATOCRIT 40.4 % (35.0-50.0); HEMOGLOBIN 13.6 g/dL (12.0-18.0); LYMPHOCYTES 31.6 % (24-44); MCHC 33.8 g/dl (30-36); MCV 88.8 fl (81-99); MONOCYTES 12.1 % (0-12); NEUTROPHILS 54.4 % (39-80); PLATELET COUNT 287 K/uL (140-440); RBC 4.55 M/ul (4.3-5.7)
[2023-12-09 00:33] LABS: ACETAMINOPHEN 0 ug/mL (10-30); ALBUMIN 3.5 g/dL (3.4-5.0); ALBUMIN/GLOBULIN RATIO 0.97 (1.1-2.4); ALCOHOL, MEDICAL <3 ng/dL (<3); ALKALINE PHOSPHATASE 62 U/L (46-116); ALT (SGPT) 35 U/L (14-59); ANION GAP 13.8 (7-21); AST (SGOT) 27 U/L (15-37); BILIRUBIN, TOTAL 0.5 ng/dL (0.2-1.0); BUN/CREATININE RATIO 16.47 (6.0-28.6); CALCIUM 8.6 mg/dL (8.5-10.1); CARBON DIOXIDE 28 mmol/L (21-32); CHLORIDE 101 mmol/L (98-107); CREATININE, SERUM 0.85 mg/dL (0.70-1.30); GLOMERULAR FILTRATION RATE,EST 116 mL/min (>60); POTASSIUM 3.8 mmol/L (3.5-5.1); PROTEIN, TOTAL 7.1 g/dL (6.4-8.2); SALICYLATE 1.6 mg/dL (2.8-20.0); TSH, 3RD GENERATION 1.443 uIU/mL (0.358-3.740); UREA NITROGEN 14 mg/dL (7-18)
[2023-12-09 00:55] VITALS: BP 0/0
[2023-12-13] MEDS ORDERED: ZYPREXA5 MG PO (10:20)
== END 2023-12-09 01:04 | disposition left against medical advice (07) ==
LOC: ED 23:50
PROVIDERS: Family Medicine
DX: R44.1 Visual hallucinations (principal); Z53.29 Procedure and treatment not carried out because of patient's decision for other reasons; F41.9 Anxiety disorder, unspecified; F32.A Depression, unspecified; F43.10 Post-traumatic stress disorder, unspecified; I10 Essential (primary) hypertension; Z87.891 Personal history of nicotine dependence; Z88.8 Allergy status to other drugs, medicaments and biological substances; Z79.899 Other long term (current) drug therapy
CPT/HCPCS: 36415; 80053; 80307; 84443; 85025; 99285; A9270-GY; G0480

== ENCOUNTER 2023-12-12 05:21 | Emergency (ER) | payer OTHER ==
[~2023-12-12] VITALS: Ht 188 cm; Wt 106.6 kg
[2023-12-12] MEDS ORDERED: AMITRIPTYLINE H50 MG PO (05:58)
[2023-12-12 06:54] VITALS: BP 124/76
[2023-12-13] MEDS ORDERED: ZYPREXA5 MG PO (10:20)
== END 2023-12-12 06:50 | disposition home or self-care (01) ==
LOC: ED 05:21
DX: M79.671 Pain in right foot (principal); M79.672 Pain in left foot; Z59.00 Homelessness unspecified; F20.9 Schizophrenia, unspecified; I10 Essential (primary) hypertension; F41.9 Anxiety disorder, unspecified; F43.10 Post-traumatic stress disorder, unspecified; F32.A Depression, unspecified; G43.909 Migraine, unspecified, not intractable, without status migrainosus; Z87.891 Personal history of nicotine dependence; Z88.8 Allergy status to other drugs, medicaments and biological substances
CPT/HCPCS: 96372; 99283; A9270; J1885

== ENCOUNTER 2023-12-15 06:54 | Emergency (ER) | payer OTHER ==
[~2023-12-15] VITALS: Ht 188 cm; Wt 106.6 kg
[~2023-12-15 06:54] MED LIST changes: +AMITRIPTYLINE H50 MG PO
[2023-12-15 07:04] VITALS: BP 127/88
[2023-12-15] MEDS ORDERED: ZYPREXA5 MG PO ×2 (10:49)
== END 2023-12-15 07:15 | disposition home or self-care (01) ==
LOC: ED 06:54
DX: J06.9 Acute upper respiratory infection, unspecified (principal); I10 Essential (primary) hypertension; Z87.891 Personal history of nicotine dependence; Z88.8 Allergy status to other drugs, medicaments and biological substances; Z79.899 Other long term (current) drug therapy; Z59.00 Homelessness unspecified
CPT/HCPCS: 99283

== ENCOUNTER 2023-12-17 06:53 | Emergency (ER) | payer OTHER ==
[~2023-12-17] VITALS: Ht 188 cm; Wt 103.2 kg
[2023-12-17 08:11] LABS: INFLUENZA B NAA POSITIVE (NEGATIVE); RESPIRATORY SYNCYTIAL VIR NAA NEGATIVE (NEGATIVE)
[2023-12-17 09:06] VITALS: BP 128/84
== END 2023-12-17 09:08 | disposition home or self-care (01) ==
LOC: ED 06:53
PROVIDERS: Emergency Medicine
DX: M54.50 Low back pain, unspecified (principal); J10.1 Influenza due to other identified influenza virus with other respiratory manifestations; I10 Essential (primary) hypertension; W01.0XXA Fall on same level from slipping, tripping and stumbling without subsequent striking against object, initial encounter; Z87.891 Personal history of nicotine dependence; Z88.8 Allergy status to other drugs, medicaments and biological substances; Z79.899 Other long term (current) drug therapy; Z11.52 Encounter for screening for COVID-19
CPT/HCPCS: 72100; 87502; 99283-25; A9270; U0002

== ENCOUNTER 2023-12-29 06:18 | Emergency (ER) | payer OTHER ==
[~2023-12-29] VITALS: Ht 188 cm; Wt 108.9 kg
[2023-12-29] MEDS ORDERED: FLONASE ALLERG9.9 ML NAS (06:30)
== END 2023-12-29 06:30 | disposition home or self-care (01) ==
LOC: ED 06:18
DX: J30.9 Allergic rhinitis, unspecified (principal); Z76.5 Malingerer [conscious simulation]; Z59.02 Unsheltered homelessness; I10 Essential (primary) hypertension; F20.0 Paranoid schizophrenia; Z87.891 Personal history of nicotine dependence; Z79.899 Other long term (current) drug therapy
CPT/HCPCS: 99283

== ENCOUNTER 2024-01-06 22:40 | Emergency (ER) | payer OTHER ==
[~2024-01-06] VITALS: Ht 188 cm; Wt 108.9 kg
[~2024-01-06 22:40] MED LIST changes: +FLONASE ALLERG9.9 ML NAS
[2024-01-07 00:04] VITALS: BP 103/68
== END 2024-01-06 23:55 | disposition home or self-care (01) ==
LOC: ED 22:40
DX: S90.812A Abrasion, left foot, initial encounter (principal); S90.811A Abrasion, right foot, initial encounter; X58.XXXA Exposure to other specified factors, initial encounter; I10 Essential (primary) hypertension; Z59.00 Homelessness unspecified; Z87.891 Personal history of nicotine dependence; Z88.8 Allergy status to other drugs, medicaments and biological substances; Z79.899 Other long term (current) drug therapy
CPT/HCPCS: 99283

== ENCOUNTER 2024-01-07 20:48 | Emergency (ER) | payer OTHER ==
[~2024-01-07] VITALS: Ht 188 cm; Wt 108.5 kg
[2024-01-07 23:40] VITALS: BP 121/78
== END 2024-01-07 23:40 | disposition home or self-care (01) ==
LOC: ED 20:48
DX: S90.31XA Contusion of right foot, initial encounter (principal); S90.32XA Contusion of left foot, initial encounter; S90.414A Abrasion, right lesser toe(s), initial encounter; S90.415A Abrasion, left lesser toe(s), initial encounter; I10 Essential (primary) hypertension; F43.10 Post-traumatic stress disorder, unspecified; G43.909 Migraine, unspecified, not intractable, without status migrainosus; F20.0 Paranoid schizophrenia; Z87.891 Personal history of nicotine dependence; Z88.8 Allergy status to other drugs, medicaments and biological substances; X58.XXXA Exposure to other specified factors, initial encounter
CPT/HCPCS: 99282

== ENCOUNTER 2024-01-12 01:26 | Emergency (ER) | payer OTHER ==
[~2024-01-12] VITALS: Ht 188 cm; Wt 108.9 kg
[2024-01-12] MEDS ORDERED: OLANZAPINE5 MG PO (01:34)
[2024-01-12] MEDS ORDERED: AMPHETAMINE SAL30 MG PO (01:35)
[2024-01-12] MEDS ORDERED: ALPRAZOLAM1 MG PO (01:35)
[2024-01-12 01:53] LABS: BASOPHILS 1.1 % (0-2); EOSINOPHILS 0.7 % (0-6); HEMATOCRIT 41.9 % (35.0-50.0); HEMOGLOBIN 14.1 g/dL (12.0-18.0); LYMPHOCYTES 31.2 % (24-44); MCH 29.4 (27-36); MCHC 33.6 g/dl (30-36); MCV 87.6 fl (81-99); MONOCYTES 6.7 % (0-12); NEUTROPHILS 60.3 % (39-80); PLATELET COUNT 335 K/uL (140-440); RBC 4.78 M/ul (4.3-5.7)
[2024-01-12 02:06] LABS: BILIRUBIN, URINE NEGATIVE (negative); BLOOD/HGB, URINE NEGATIVE (Negative); KETONE, URINE NEGATIVE (Negative); LEUK ESTERASE, URINE NEGATIVE (negative); NITRITE, URINE NEGATIVE (negative)
[2024-01-12 02:18] LABS: ACETAMINOPHEN 0 ug/mL (10-30); ALBUMIN 3.5 g/dL (3.4-5.0); ALBUMIN/GLOBULIN RATIO 0.95 (1.1-2.4); ALCOHOL, MEDICAL <3 ng/dL (<3); ALKALINE PHOSPHATASE 54 U/L (46-116); ALT (SGPT) 27 U/L (14-59); ANION GAP 14.8 (7-21); AST (SGOT) 24 U/L (15-37); BILIRUBIN, TOTAL 0.3 ng/dL (0.2-1.0); BUN/CREATININE RATIO 14.94 (6.0-28.6); CALCIUM 9.1 mg/dL (8.5-10.1); CARBON DIOXIDE 26 mmol/L (21-32); CHLORIDE 102 mmol/L (98-107); CREATININE, SERUM 0.87 mg/dL (0.70-1.30); GLOMERULAR FILTRATION RATE,EST 115 mL/min (>60); POTASSIUM 3.8 mmol/L (3.5-5.1); PROTEIN, TOTAL 7.2 g/dL (6.4-8.2); SALICYLATE 2.6 mg/dL (2.8-20.0); TSH, 3RD GENERATION 2.475 uIU/mL (0.358-3.740); UREA NITROGEN 13 mg/dL (7-18)
[2024-01-12 02:21] LABS: AMPHETAMINES, URINE POSITIVE (NEGATIVE); BARBITURATES, URINE NEGATIVE (NEGATIVE); BENZODIAZEPINE, URINE NEGATIVE (NEGATIVE); BUPRENORPHINE, URINE NEGATIVE (NEGATIVE); CANNABINOID, URINE NEGATIVE (NEGATIVE); COCAINE, URINE NEGATIVE (NEGATIVE); ECSTASY, URINE NEGATIVE (NEGATIVE); FENTANYL, URINE NEGATIVE (NEGATIVE); METHADONE, URINE NEGATIVE (NEGATIVE); OPIATES, URINE NEGATIVE (NEGATIVE); OXYCODONE, URINE NEGATIVE (NEGATIVE); PHENCYCLIDINE, URINE NEGATIVE (NEGATIVE)
[2024-01-12 03:01] VITALS: BP 126/98
== END 2024-01-12 03:03 | disposition home or self-care (01) ==
LOC: ED 01:26
PROVIDERS: Internal Medicine
DX: F20.9 Schizophrenia, unspecified (principal); Z59.00 Homelessness unspecified; I10 Essential (primary) hypertension; F41.9 Anxiety disorder, unspecified; F43.10 Post-traumatic stress disorder, unspecified; F32.A Depression, unspecified; Z87.891 Personal history of nicotine dependence; Z88.8 Allergy status to other drugs, medicaments and biological substances; Z79.899 Other long term (current) drug therapy
CPT/HCPCS: 36415; 80053; 80307; 81003; 84443; 85025; G0480

== ENCOUNTER 2024-07-23 04:06 | Emergency (ER) | payer OTHER ==
[~2024-07-23] VITALS: Ht 188 cm; Wt 89.0 kg
[~2024-07-23 04:06] MED LIST changes: +ALPRAZOLAM1 MG PO; +AMPHETAMINE SAL30 MG PO
[2024-07-23] MEDS ORDERED: CLOTRIMAZOLE/BETAMET DIPROP 15 GM TUBE TOP ONE (04:30)
[2024-07-23] MEDS ORDERED: MICONAZOLE NITRATE 1 EA BTL TOP ONE (04:30)
[2024-07-23] MEDS ORDERED: CLOTRIMAZOLE-BE15 GM TOP (04:53)
[2024-07-23 05:08] VITALS: BP 130/88
== END 2024-07-23 05:08 | disposition home or self-care (01) ==
LOC: ED 04:06
DX: L30.9 Dermatitis, unspecified (principal); I10 Essential (primary) hypertension; Z87.891 Personal history of nicotine dependence; Z88.8 Allergy status to other drugs, medicaments and biological substances
CPT/HCPCS: 99283

== ENCOUNTER 2025-06-19 19:32 | Emergency (ER) | payer OTHER ==
[~2025-06-19] VITALS: Ht 188 cm; Wt 100.0 kg
[~2025-06-19 19:32] MED LIST changes: +CLOTRIMAZOLE-BE15 GM TOP
[2025-06-19 20:22] LABS: BASOPHILS 0.7 % (0.2-1.2); EOSINOPHILS 1.7 % (0.8-7.0); LYMPHOCYTES 32.5 % (21.8-53.1); MCH 29.1 PG (25.7-32.2); MCHC 33.7 g/dL (32.3-36.5); MCV 86.3 fL (79.0-92.2); MONOCYTES 13.2 % (5.3-12.2); NEUTROPHILS 51.7 % (34.0-67.9); RBC 4.54 M/uL (4.63-6.08)
[2025-06-19 20:46] LABS: ALCOHOL, MEDICAL <3 ng/dL (<3); ALT (SGPT) 31 U/L (14-59); AST (SGOT) 19 U/L (15-37); GLOMERULAR FILTRATION RATE,EST 117 mL/min (>60); PROTEIN, TOTAL 6.9 g/dL (6.4-8.2); TSH, 3RD GENERATION 1.593 uIU/mL (0.358-3.740); UREA NITROGEN 14 mg/dL (7-18)
[2025-06-19] MEDS ORDERED: ACETAMINOPHEN 500 MG TAB PO ONE (21:00)
[2025-06-19 21:21] LABS: BLOOD/HGB, URINE TRACE-I (Negative); KETONE, URINE NEGATIVE (Negative); LEUK ESTERASE, URINE NEGATIVE (negative); NITRITE, URINE NEGATIVE (negative)
[2025-06-19 21:27] LABS: BACTERIA, URINE RARE /hpf (negative); CASTS, URINE NONE SEEN \\lpf; CRYSTALS, URINE NONE SEEN (0-1+); EPITHELIAL CELLS, URINE SQUAMOUS 1+ /lpf (0-1+); REFLEX CULTURE, URINE No (No)
[2025-06-19 21:33] LABS: AMPHETAMINES, URINE POSITIVE (NEGATIVE); BARBITURATES, URINE NEGATIVE (NEGATIVE); BENZODIAZEPINE, URINE NEGATIVE (NEGATIVE); CANNABINOID, URINE NEGATIVE (NEGATIVE); COCAINE, URINE NEGATIVE (NEGATIVE); ECSTASY, URINE NEGATIVE (NEGATIVE); FENTANYL, URINE NEGATIVE (NEGATIVE); METHADONE, URINE NEGATIVE (NEGATIVE); OPIATES, URINE NEGATIVE (NEGATIVE); OXYCODONE, URINE NEGATIVE (NEGATIVE); PHENCYCLIDINE, URINE NEGATIVE (NEGATIVE)
[2025-06-19 21:53] VITALS: BP 111/78
== END 2025-06-19 21:53 | disposition home or self-care (01) ==
LOC: ED 19:32
PROVIDERS: Family Medicine
DX: F22 Delusional disorders (principal); I10 Essential (primary) hypertension; Z87.891 Personal history of nicotine dependence; Z59.00 Homelessness unspecified; Z88.8 Allergy status to other drugs, medicaments and biological substances
CPT/HCPCS: 36415; 80053; 80307; 81001; 84443; 85025; A9270; G0480

== ENCOUNTER 2025-06-19 22:46 | Emergency (ER) | payer OTHER ==
[~2025-06-19] VITALS: Ht 188 cm; Wt 103.9 kg
[2025-06-19 23:03] VITALS: BP 113/75
== END 2025-06-19 23:03 | disposition home or self-care (01) ==
LOC: ED 22:46
DX: F22 Delusional disorders (principal); I10 Essential (primary) hypertension; Z59.00 Homelessness unspecified; Z76.5 Malingerer [conscious simulation]; Z87.891 Personal history of nicotine dependence; Z88.8 Allergy status to other drugs, medicaments and biological substances
CPT/HCPCS: 99283

== ENCOUNTER 2025-06-20 07:03 | Emergency (ER) | payer OTHER ==
[~2025-06-20] VITALS: Ht 188 cm; Wt 103.9 kg
[2025-06-20] MEDS ORDERED: ACETAMINOPHEN 500 MG TAB PO ONE (07:15)
[2025-06-20 08:11] VITALS: BP 101/70
== END 2025-06-20 08:11 | disposition home or self-care (01) ==
LOC: ED 07:03
DX: R51.9 Headache, unspecified (principal); I10 Essential (primary) hypertension; Z59.02 Unsheltered homelessness; Z87.891 Personal history of nicotine dependence; Z88.8 Allergy status to other drugs, medicaments and biological substances
CPT/HCPCS: 99283; A9270